=== PATIENT | male | born 1985 | race Caucasian/White ===

== ENCOUNTER 2019-01-13 21:28 | Emergency (ER) | payer OTHER ==
--- OUTSIDE RECORDS SUMMARY | 2019-01-13 21:41 | XMS REPORT | Continuity of Care Document ---
:1985 External Reference #:[id number] Author Name VanessaYamilet ribeiro Care Team Providers Name Role Phone Dominga Goss F.N.P. Primary Care Physician Unavailable Payers Date Identification Numbers Payment Provider Subscriber Policy Number: [id number] [employer] Student [employer] Isabel Rodriguez PayID: [id number] [address] [place] [address] Family History Date Family Member(s) Observation Comments General Diabetes General Hypertension General Stroke Father snoring Social History Type Date Description Comments Sex Unknown Marital Status Single Lives With Alone Occupation Student ETOH Use Denies alcohol use Tobacco Use Start: Unknown Patient has never smoked Smoking Status Reviewed: 01/11/19 Patient has never smoked Exercise Type/Frequency Exercises sporadically Allergies, Adverse Reactions, Alerts Description No Known Drug Allergies Medications Active Medications SIG Qnty Indications Ordering Provider Date Vitamin D3 Ultra 1 weekly Unknown Potency [id number] Tablets Vitamin B12 1 by mouth every Unknown 1000mcg day Tablets ER Vital Signs Date Vital Result Comment 01/11/2019 2:03pm Height 68 inches 5'8" Weight 221.50 lb Heart Rate 70 /min BP Systolic 116 mmHg BP Diastolic 68 mmHg Respiratory Rate 16 /min Pain Level 6 BMI (Body Mass Index) 33.7 kg/m2 12/11/2018 1:25pm Height 68 inches 5'8" Weight 218.00 lb Heart Rate 94 /min BP Systolic Sitting 120 mmHg Lue large cuff BP Diastolic Sitting 70 mmHg Lue large cuff Respiratory Rate 16 /min O2 % BldC Oximetry 97 % BMI (Body Mass Index) 33.1 kg/m2 10/23/2018 10:41am Height 68 inches 5'8" Weight 214.00 lb Heart Rate 68 /min BP Systolic Sitting 120 mmHg left upper arm large cuff BP Diastolic Sitting 60 mmHg left upper arm large cuff Respiratory Rate 12 /min O2 % BldC Oximetry 98 % BMI (Body Mass Index) 32.5 kg/m2 10/05/2018 2:13pm Height 68 inches 5'8" Weight 218.50 lb Heart Rate 87 /min BP Systolic Sitting 102 mmHg BP Diastolic Sitting 80 mmHg O2 % BldC Oximetry 96 % at rest on room air BMI (Body Mass Index) 33.2 kg/m2 Procedures Date Code Description Status 01/11/2019 79798 Inject/Drain Joint/Bursa Major W/O US Completed 10/09/2018 56740 Sleep Study Unattended,HRT Rate,Oxygen Sat,Resp Completed Effort/Airflow Encounters Type Date Location Provider Dx Diagnosis Office Visit 12/11/2018 [facility] G47.33 Obstructive sleep 1:30p [facility] (adult) [facility] (pediatric) G47.19 Other hypersomnia Office Visit 10/23/2018 [facility] G47.33 Obstructive sleep 10:30a [facility] ap[facility] (adult) [facility] (pediatric) Office Visit 10/05/2018 [facility] Burden, G47.9 Sleep disorder, 2:30p [facility] G47.19 Other hypersomnia Plan of Treatment Future Appointment(s):07/06/2019 3:00 pm - John Luque M.D. at [facility]03/16/2019 1:30 pm - Linnette Burden MD at [facility]01/11/2019 - Joaquim Espinoza, MDM22.2x1 Patellofemoral disorders, right kneeNew Therapy:Physical TherapyFollow up: Follow up: once he obtains the MRI from [facility].562 Pain in left kneeM22.2x2 Patellofemoral disorders, left knee
--- NOTE | 2019-01-13 23:34 | ED ---
Head Injury - HPI Summary HPI Summary: Patient complains of right ear pain, ringing in right ear and headache status post being hit in the right ear by squad fall at 7:30 PM tonight. Patient denies LOC, N/V, vision changes, any other symptoms pain or injury. Medical history is none. - History Of Current Complaint Chief Complaint: EDHeadInjury Stated Complaint: HEADACHE/NECK PAIN/RINGING IN EARS PER PT Time Seen by Provider: 01/13/19 23:10 Hx Obtained From: Patient Mechanism Of Injury: Blunt Trauma Onset/Duration: Started Hours Ago Onset of Pain: Immediate Severity Currently: Moderate Severity Initially: Moderate Pain Intensity: 5 Pain Scale Used: 0-10 Numeric Location: Discrete At: Character: Throbbing Associated Signs And Symptoms: Headache - Allergies/Home Medications Allergies/Adverse Reactions: Allergies Allergy/AdvReac Type Severity Reaction Status Date / Time No Known Allergies Allergy Verified 01/13/19 21:34 PMH/Surg Hx/FS Hx/Imm Hx Endocrine/Hematology History: Denies: Hx Anticoagulant Therapy Cardiovascular History: Denies: Hx Pacemaker/ICD History: Denies: Hx Dialysis Sensory History: Denies: Hx Legally Blind EENT History: Denies: Hx Deafness Neurological History: Denies: Hx Dementia Infectious Disease History: No Infectious Disease History: Denies: Traveled Outside the [place] in Last 30 Days - Family History Known Family History: Positive: Non-Contributory - Social History Alcohol Use: Occasionally Hx Substance Use: No Hx Tobacco Use: No Review of Systems Constitutional: Negative Eyes: Negative Positive: Ear Ache Cardiovascular: Negative Respiratory: Negative Gastrointestinal: Negative Genitourinary: Negative Musculoskeletal: Negative Skin: Negative Positive: Headache Psychological: Normal All Other Systems Reviewed And Are Negative: Yes Physical Exam - Summary Physical Exam Summary: No evidence of trauma to head, face, mouth, ear. TM intact. Full range of motion of neck and jaw. Neuro exam normal. Triage Information Reviewed: Yes Vital Signs On Initial Exam: Initial Vitals Temp Pulse Resp BP Pulse Ox 97.3 F 80 16 133/76 97 01/13/19 21:31 01/13/19 21:31 01/13/19 21:31 01/13/19 21:31 01/13/19 21:31 Vital Signs Reviewed: Yes Appearance: Positive: Well-Appearing Skin: Positive: Warm Head/Face: Positive: Normal Head/Face Inspection Eyes: Positive: Normal ENT: Positive: Normal ENT inspection Neck: Positive: Supple Respiratory/Lung Sounds: Positive: Clear to Auscultation Cardiovascular: Positive: Normal Abdomen Description: Positive: Nontender Musculoskeletal: Positive: Normal Neurological: Positive: Normal Psychiatric: Positive: Normal AVPU Assessment: Alert - [place] Coma Scale Best Eye Response: 4 - Spontaneous Best Motor Response: 6 - Obeys Commands Best Verbal Response: 5 - Oriented Coma Scale Total: 15 Diagnostics - Vital Signs Vital Signs Temp Pulse Resp BP Pulse Ox 01/13/19 21:31 97.3 F 80 16 133/76 97 - Laboratory Lab Statement: Any lab studies that have been ordered have been reviewed, and results considered in the medical decision making process. Head Injury Course/Dx Course Of Treatment: Patient complains of right ear pain, ringing in right ear and headache status post being hit in the right ear by squad fall at 7:30 PM tonight. Patient denies LOC, N/V, vision changes, any other symptoms pain or injury. Medical history is none. Vital signs within normal limits. Physical exam indicates no need for imaging. - Diagnoses Provider Diagnoses: Head injury Discharge - Sign-Out/Discharge Documenting (check all that apply): Patient Departure Patient Received Moderate/Deep Sedation with Procedure: No - Discharge Plan Condition: Stable Disposition: HOME Patient Education Materials: Head Injury (ED) Referrals: Gama Mendoza MD [Primary Care Provider] - Abhinav Frias MD [Medical Doctor] - Additional Instructions: Symptoms should improve over the next couple days. If symptoms do not improve, follow up with ENT Dr. Frias for further evaluation. Return to the ED for any new or worsening symptoms. - Billing Disposition and Condition Condition: STABLE Disposition: Home
[2019-01-13 23:42] VITALS: BP 113/76
== END 2019-01-13 23:42 | disposition home or self-care (01) ==
LOC: ED 21:28
DX: S09.90XA Unspecified injury of head, initial encounter (principal); X58.XXXA Exposure to other specified factors, initial encounter; Y92.9 Unspecified place or not applicable
CPT/HCPCS: 99282

== ENCOUNTER 2019-01-21 22:22 | Emergency (ER) | payer OTHER ==
--- OUTSIDE RECORDS SUMMARY | 2019-01-21 22:37 | XMS REPORT | Continuity of Care Document ---
:1985 External Reference #:[id number] Author Name Nolvia Mccracken PA-C Address [address] [place] [address] Care Team Providers Name Role Phone [facility] Primary Care Physician Unavailable Payers Date Identification Numbers Payment Provider Subscriber Policy Number: [id number] [employer] Isabel Rodriguez Group Number: [id number] [id number] Group Name: [id number] [place] [address] PayID: [id number] Social History Type Date Description Comments Sex Unknown Occupation Student Tobacco Use Start: Unknown Never Smoked Cigarettes Tobacco Use Start: Unknown Never Smoked Cigars Tobacco Use Start: Unknown Never Smoked A Pipe Smokeless Tobacco Never Used Smokeless Tobacco ETOH Use Denies alcohol use Tobacco Use Start: Unknown Patient has never smoked Smoking Status Reviewed: 01/18/19 Patient has never smoked Allergies, Adverse Reactions, Alerts Description No Known Drug Allergies Medications Active Medications SIG Qnty Indications Ordering Provider Date D3 High Potency Unknown 1000Unit Capsules B12 Fast Dissolve Unknown 5000mcg Tablets Dispers Thyroid Supplement Unknown Vital Signs Date Vital Result Comment 01/18/2019 2:19pm Weight 220.00 lb Weight 99.792 kg Height 69 inches 5'9" Height in cm's 175.3 cm BMI (Body Mass Index) 32.5 kg/m2 Encounters Type Date Location Provider Dx Diagnosis Office Visit 01/18/2019 [place] Nolvia Mccracken, H93.292 Other abnormal 2:15p 06/30/07 [facility] auditory perceptions, left ear Plan of Treatment Future Appointment(s):01/19/2019 11:15 am - Shane Logan MA, CCC-A at [place] 06/30/07
[2019-01-21] MEDS ORDERED: Naproxen TAB* 250 MG PO ONE (23:39)
--- NOTE | 2019-01-22 01:12 | ED ---
Lower Extremity - HPI Summary HPI Summary: 33-year-old male presents with complaints of left knee pain. States he was playing soccer earlier today, planted his left foot to kick the ball, and when he twisted he felt multiple pops in his knee, had sudden severe pain, and fell to the ground. States he has been unable to bear weight or ambulate on the leg since the incident. Reports that it feels "tight" inside the knee. Patient does report previous injury to this knee. Denies any numbness or tingling. - History of Current Complaint Chief Complaint: EDExtremityLower Stated Complaint: LT KNEE INJURY PER PT Time Seen by Provider: 01/21/19 23:29 Hx Obtained From: Patient Pain Intensity: 7 - Allergies/Home Medications Allergies/Adverse Reactions: Allergies Allergy/AdvReac Type Severity Reaction Status Date / Time No Known Allergies Allergy Verified 01/21/19 22:31 Home Medications: Home Medications Cyanocobalamin (Vitamin B-12) [Vitamin B-12] 1,000 mcg PO DAILY 01/21/19 [ History Confirmed 01/21/19] Vit D3-Vit K/Berberine/Hops [Ostera Tablet] 50,000 i.u. PO WEEKLY 01/21/19 [ History Confirmed 01/21/19] PMH/Surg Hx/FS Hx/Imm Hx Previously Healthy: Yes - Denies significant PMH Endocrine/Hematology History: Denies: Hx Anticoagulant Therapy Cardiovascular History: Denies: Hx Pacemaker/ICD History: Denies: Hx Dialysis Sensory History: Denies: Hx Legally Blind, Hx Deafness Opthamlomology History: Denies: Hx Legally Blind Neurological History: Denies: Hx Dementia - Surgical History Surgical History: None - Immunization History Immunizations Up to Date: Yes Infectious Disease History: No Infectious Disease History: Denies: Traveled Outside the [place] in Last 30 Days - Family History Known Family History: Positive: Non-Contributory - Social History Occupation: Employed Full-time Lives: With Family Alcohol Use: Occasionally Hx Substance Use: No Substance Use Type: Reports: None Hx Tobacco Use: No Smoking Status (MU): Never Smoked Tobacco Review of Systems Constitutional: Negative Cardiovascular: Negative Respiratory: Negative Gastrointestinal: Negative Genitourinary: Negative Musculoskeletal: Other - See HPI Skin: Negative Neurological: Negative All Other Systems Reviewed And Are Negative: Yes Physical Exam - Summary Physical Exam Summary: GENERAL APPEARANCE: Well developed, well nourished, alert and cooperative, and appears to be in no acute distress. CARDIAC: Normal S1 and S2. No S3, S4 or murmurs. Rhythm is regular. There is no peripheral edema, cyanosis or pallor. Extremities are warm and well perfused. Capillary refill is less than 2 seconds. Peripheral pulses intact. LUNGS: Clear to auscultation without rales, rhonchi, wheezing or diminished breath sounds. ABDOMEN: Positive bowel sounds. Soft, nondistended, nontender. No guarding or rebound. No masses or hepatosplenomegally. MUSKULOSKELETAL: Normal muscular development. EXTREMITIES: Tenderness to the posterior left knee without ecchymosis or gross deformity. There is an effusion noted. No laxity of the knee joint. Circulation and sensation intact. SKIN: Skin normal color, texture and turgor with no lesions or eruptions. Triage Information Reviewed: Yes Vital Signs On Initial Exam: Initial Vitals Temp Pulse Resp BP Pulse Ox 98.2 F 75 16 129/74 97 01/21/19 22:27 01/21/19 22:27 01/21/19 22:27 01/21/19 22:27 01/21/19 22:27 Vital Signs Reviewed: Yes Diagnostics - Vital Signs Vital Signs Temp Pulse Resp BP Pulse Ox 01/21/19 22:27 98.2 F 75 16 129/74 97 - Laboratory Lab Statement: Any lab studies that have been ordered have been reviewed, and results considered in the medical decision making process. - Radiology No standard instances Radiology Interpretation Completed By: ED Physician - No acute fracture. There is widening and displacement of the femoropatellar joint space likely representing an effusion. Lower Extremity Course/Dx - Course Course Of Treatment: 33-year-old male presents with complaints of left knee pain. States he was playing soccer earlier today, planted his left foot to kick the ball, and when he twisted he felt multiple pops in his knee, had sudden severe pain, and fell to the ground. States he has been unable to bear weight or ambulate on the leg since the incident. Reports that it feels "tight " inside the knee. Patient does report previous injury to this knee. Denies any numbness or tingling. Afebrile. Vital signs stable. Patient had tenderness to the posterior left knee without ecchymosis or gross deformity. There is an effusion noted. No laxity of the knee joint. Circulation and sensation intact. Patient was given naproxen 500 mg PO for pain. X-ray showed no acute fracture or dislocation. There was widening and displacement of the femoropatellar joint space likely representing an effusion. Results were reviewed with the patient. He was placed in a knee immobilizer and provided crutches. He is to remain nonweightbearing at this time. Recommending conservative treatment for a left knee injury including [id number] analgesics and RICE. He is to follow-up with orthopedic surgery in 3-5 days for further evaluation and treatment. Anticipatory guidance and warning symptoms reviewed with the patient. Verbalizes understanding and agrees with plan of care. - Diagnoses Differential Diagnosis/HQI/PQRI: Positive: Fracture (Closed), Sprain, Strain Provider Diagnoses: Left knee injury Discharge - Sign-Out/Discharge Documenting (check all that apply): Patient Departure Patient Received Moderate/Deep Sedation with Procedure: No - Discharge Plan Condition: Stable Disposition: HOME Patient Education Materials: Crutch Instructions (ED), Knee Pain (ED), Knee Immobilizer (ED) Referrals: Gama Mendoza MD [Primary Care Provider] - Chester Peter MD [Medical Doctor] - 3 Days (Call for appointment.) Additional Instructions: The x-ray performed in the emergency room today showed no evidence of a fracture. I do suppose suspect that she have some type of soft tissue injury within the knee joint. Rest the knee as much as possible. You should remain nonweightbearing at this time. Use the crutches that were provided to you. Apply ice to the affected area for 15-20 minutes at least 4 times a day to help with the pain and swelling. Elevate the leg to help reduce swelling. Take acetaminophen (Tylenol) or ibuprofen (Advil, Motrin) according to directions as needed for pain. Follow up with orthopedic surgery in 3-5 days for further evaluation and treatment. Seek immediate medical attention if you have severe pain not managed with pain medication, develop numbness or tingling in the foot or toes, or have any worsening of symptoms. - Billing Disposition and Condition Condition: STABLE Disposition: Home - Attestation Statements Provider Attestation: pt seen by midlevel provider independently, based on their assessment, it was not necessary to present the case to me but I was available for consultation. I did not form a physician-patient relationship with the patient. The chart however, has been reviewed. am signing this note strictly in an administrative capacity.
[2019-01-22 01:38] VITALS: BP 117/71
== END 2019-01-22 01:37 | disposition home or self-care (01) ==
LOC: ED 22:22
DX: S89.92XA Unspecified injury of left lower leg, initial encounter (principal); X50.9XXA Other and unspecified overexertion or strenuous movements or postures, initial encounter; Y93.66 Activity, soccer; Y92.9 Unspecified place or not applicable; M25.462 Effusion, left knee
CPT/HCPCS: 99283; A9270-GY

== ENCOUNTER 2019-09-08 15:53 | Emergency (ER) | payer OTHER ==
[2019-09-08 16:54] VITALS: BP 122/68
[2019-09-08] MEDS ORDERED: diPHENhydraMINE PO* 50 MG PO ONE (18:24)
--- NOTE | 2019-09-08 18:32 | UC ---
Skin Complaint HPI - History of Current Complaint Chief Complaint: UCRash Time Seen by Provider: 09/08/19 18:09 Stated Complaint: RASH Hx Obtained From: Patient Pain Intensity: 5 - Allergy/Home Medications Allergies/Adverse Reactions: Allergies Allergy/AdvReac Type Severity Reaction Status Date / Time No Known Allergies Allergy Verified 09/08/19 16:54 Home Medications: Home Medications Cyanocobalamin (Vitamin B-12) [Vitamin B-12] 1,000 mcg PO DAILY 01/21/19 [ History Confirmed 09/08/19] Vit D3-Vit K/Berberine/Hops [Ostera Tablet] 50,000 i.u. PO WEEKLY 01/21/19 [ History Confirmed 09/08/19] Iodine [Kelp] 150 mcg PO DAILY 09/08/19 [History Confirmed 09/08/19] predniSONE 50 mg TAB [Deltasone 50 mg TAB] 50 mg PO DAILY #4 tab 09/08/19 [Rx] PMH/Surg Hx/FS Hx/Imm Hx Other History Of: Negative For: Anticoagulant Therapy - Surgical History Surgical History: None - Family History Known Family History: Positive: Non-Contributory - Social History Alcohol Use: Occasionally Substance Use Type: None Smoking Status (MU): Never Smoked Tobacco Physical Exam Vital Signs: Initial Vital Signs Temp 98.8 F 09/08/19 16:47 Pulse 105 09/08/19 16:47 Resp 16 09/08/19 16:47 BP 122/68 09/08/19 16:47 Pulse Ox 97 09/08/19 16:47 Course/Dx - Differential Diagnoses - Skin Complaint Differential Diagnoses: Allergic Reaction, Contact Dermatitis, Urticaria - Diagnoses Provider Diagnosis: Allergic reaction Discharge ED - Sign-Out/Discharge Documenting (check all that apply): Patient Departure All imaging exams completed and their final reports reviewed: No Studies - Discharge Plan Condition: Stable Disposition: HOME Prescriptions: predniSONE 50 mg TAB [Deltasone 50 mg TAB] 50 mg PO DAILY #4 tab Patient Education Materials: General Allergic Reaction (ED) Referrals: Gama Mendoza MD [Primary Care Provider] - 2 Days Additional Instructions: You appear to be having an allergic reaction to an unknown allergen. Take prednisone 50 mg daily for the next 4 days. We gave you the first dose in the clinic today. Take an [id number] nondrowsy antihistamine such as Zyrtec, Claritin, or Faviola twice daily to help with the itching. You may use the generic forms of these medications. Follow-up with your primary care provider in 2 days especially if symptoms are not improving. Seek immediate medical attention in the emergency room if you develop swelling of the lips, tongue, or throat, difficulty breathing, or any worsening of symptoms. - Billing Disposition and Condition Condition: STABLE Disposition: Home
== END 2019-09-08 18:38 | disposition home or self-care (01) ==
LOC: UCEAST 15:53
DX: T78.49XA Other allergy, initial encounter (principal); R21 Rash and other nonspecific skin eruption; X58.XXXA Exposure to other specified factors, initial encounter; Y92.9 Unspecified place or not applicable
CPT/HCPCS: 99212; A9270-GY; G0463; J7512